=== PATIENT | female | born 1950 | race Caucasian/White ===

== ENCOUNTER 2018-12-06 20:42 | Emergency (ER) | payer OTHER ==
[~2018-12-06] VITALS: Ht 152.4 cm; Wt 72.6 kg
[2018-12-06 20:51] VITALS: Ht 152.4 cm; Wt 72.6 kg
[2018-12-06 22:53] LABS: UA SPECIFIC GRAVITY 1.015 (1.005-1.035); microscopic required? YES; urine erythrocyte NEGATIVE (NEGATIVE)
[2018-12-06 23:17] LABS: BASOPHIL % 0.9 % (0-2); PLATELET COUNT 161 x10^3mcL (130-400); RED CELL DISTRIBUTION WIDTH 13.7 % (11.5-14.5)
[2018-12-06 23:29] LABS: CREATININE SERUM 0.7 mg/dL (0.6-1.0); GFR1 > 60 mL/min; POTASSIUM SERUM 3.9 mmol/L (3.5-5.1)
[2018-12-06 23:31] LABS: CALCIUM 9.8 mg/dL (8.5-10.1); CARBON DIOXIDE 29.8 mmol/L (21-32); CHLORIDE SERUM 107 mmol/L (98-107); GLUCOSE SERUM 129 mg/dL (74-106); SODIUM SERUM 143 mmol/L (136-145)
[2018-12-06 23:35] LABS: AMPHETAMINE QUAL UR NONE DETECTED (See below)
[2018-12-06 23:40] LABS: ALKALINE PHOSPHATASE 83 U/L (46-116); ALT/SGPT 31 U/L (14-59); AST/SGOT 17 U/L (15-37); BILIRUBIN TOTAL 0.4 mg/dL (0.20-1.00); FREE T4 0.97 ng/dL (0.76-1.46); TOTAL PROTEIN, SERUM 7.6 g/dL (6.4-8.2)
[2018-12-07 09:49] VITALS: BP 163/78
== END 2018-12-07 09:49 | disposition short-term general hospital (02) ==
LOC: ED 20:42
PROVIDERS: Emergency Medicine
DX: I67.82 Cerebral ischemia (principal); I10 Essential (primary) hypertension; K21.9 Gastro-esophageal reflux disease without esophagitis; M19.90 Unspecified osteoarthritis, unspecified site
CPT/HCPCS: 36415; 82962; 83880; 84439; Q9967